=== PATIENT | male | born 1955 | race Caucasian/White ===

== ENCOUNTER 2021-02-05 16:05 | Emergency (ER) | payer BC | END 2021-02-05 19:15 | disposition left against medical advice (07) | LOC: MADERS 16:05 | DX: Z53.21 Procedure and treatment not carried out due to patient leaving prior to being seen by health care provider (principal) ==

== ENCOUNTER 2021-02-05 20:17 | Emergency (ER) | payer BC ==
[2021-02-05] MEDS ORDERED: Boostrix 0.5 ML (Tdap) VIAL ONE (21:17)
== END 2021-02-05 21:33 | disposition home or self-care (01) ==
LOC: MADERS 20:17
DX: S61.211A Laceration without foreign body of left index finger without damage to nail, initial encounter (principal); Z23 Encounter for immunization; W26.0XXA Contact with knife, initial encounter; Y92.009 Unspecified place in unspecified non-institutional (private) residence as the place of occurrence of the external cause
CPT/HCPCS: 12001; 90471; 90715